=== PATIENT | male | born 1970 | race Two or more races ===

== ENCOUNTER → 2017-07-12 | Outpatient (CLI) | payer OTHER ==
--- NOTE | 2017-07-12 23:51 | HKNOTE ---
DATE OF SERVICE: 07/12/2017 CHIEF COMPLAINT: Right hip pain. HISTORY OF PRESENT ILLNESS: This is a 47-year-old male who states that he has been having increasin g right hip pain. He states that the pain has been chronic. He is using crutches for ambulation. The pain is rated as 10/10 daily. It is constant. There are no alleviating factors. He is unable to perform his activities of daily living. He has seen multiple orthopedic surgeons previously. He takes numerous pain medications without any pain relief. He has had extensive therapy without any pain relief. He denies any back pain. There are no alleviating factors. GAIT: Antalgic gait. Use of assistive device. PHYSICAL EXAMINATION: Right hip: There is 20 degrees of flexion contracture. He is able to flex t o 60 degrees. He lacks 20 degrees of internal rotation, external rotation up to 15 degrees. The ri ght leg is shorter than the left leg. Motor strength 5/5 hamstrings, quadriceps, tibialis anterior, gastrocsoleus. X-RAYS, RIGHT HIP: Multiple views of the right hip demonstrate a dysplastic right femoral head. Th ere is loss of all joint space of the right hip. There are peripheral osteophytes. Right leg is sh orter than the left leg. 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 PLAN: I discussed treatment options with the patient. I explained to him that given his deformity and age that this requires referral to a tertiary care center for a joint replacement specialist. W e will request authorization for referral. He will follow up with me as needed. Dictated By: JAMILA ROBINS/MORGAN Conf#: [id number] DID#: [id number]
== END | disposition home or self-care (01) ==
LOC: HKI 16:41
PROVIDERS: ATTEND Orthopaedic Surgery Adult Reconstructive Orthopaedic Surgery
DX: M25.551 Pain in right hip (principal); M16.11 Unilateral primary osteoarthritis, right hip
CPT/HCPCS: G0463

== ENCOUNTER 2018-03-20 05:45 | Day surgery (SDC) | END 2018-03-20 10:26 | disposition home or self-care (01) ==